=== PATIENT | female | born 1975 | race Caucasian/White ===

== ENCOUNTER 2017-05-01 10:52 | Emergency (ER) | payer OTHER ==
[2017-05-01 10:58] VITALS: BP 157/93; PULSE 92; TEMP 97.8; BMI 28.9
--- NOTE | 2017-05-01 11:11 | PDOC ---
History of Present Illness - General Chief Complaint: Chest Pain Stated Complaint: DIZZINESS, CHEST PAIN Time Seen by Provider: 05/01/17 11:09 History Source: Patient Exam Limitations: No Limitations - History of Present Illness Initial Comments: CHIEF COMPLAINT: 42 y/o afebrile female with PMH hypothyroidism c/o chest pain that started this morning on her way to work. HISTORY OF PRESENT ILLNESS: The patient states she was driving to work when she started feeling middle chest pain that she describes as a feeling that she needs to "belch". She did not have anything to eat yet today. She also admits to mild nausea. She denies f/c, PHILIP, neck pain, v/d, cough, hemoptysis, SOB, abd pain, calf pain, smoking history, recent travel. The patient had a hysterectomy. She had a right knee osteotomy on 02/19/17, is 50% weight bearing with the aide of 1 crutch and is currently doing physical therapy. PCP is Dr. Wooten. Vital signs on arrival are notable for pulse of 92. REVIEW OF SYSTEMS: GENERAL/CONSTITUTIONAL: No fever/chills. No weakness. No weight change. HEAD, EYES, EARS, NOSE AND THROAT: No change in vision. No ear pain or discharge. No sore throat. CARDIOVASCULAR: +anterior chest pain. No shortness of breath. RESPIRATORY: No cough, wheezing, or hemoptysis. GASTROINTESTINAL: +nausea. No abd pain, nausea, vomiting, diarrhea. GENITOURINARY: No dysuria, frequency, or change in urination. MUSCULOSKELETAL: No joint or muscle swelling or pain. No neck or back pain. SKIN: No rash or easy bruising. NEUROLOGIC: No headache, vertigo, loss of consciousness, or loss of sensation. PHYSICAL EXAM: GENERAL: The patient is awake, alert, and fully oriented, in no acute distress. She is very well appearing, ambulatory, in NAD or obvious discomfort. HEAD: Normal with no signs of trauma. ENT: Pupils equal, round and reactive to light, extraocular movements intact, sclera anicteric, conjunctiva clear. Neck supple. LUNGS: Clear to auscultation bilaterally. Normal excursion. No respiratory distress or use of accessory muscles. CV: RRR, S1/S2, no MRG. Cap refill < 2 sec. CHEST WALL: No reproducible chest wall TTP. ABDOMEN: Soft, non-distended, non-tender even to deep palpation, no hepatomegaly or splenomegaly, no masses. EXTREMITIES: Normal range of motion, no edema. NEUROLOGICAL: Normal speech, normal gait. CN II-XII grossly intact. PSYCH: Normal mood, normal affect. SKIN: Warm, dry, normal turgor, no rashes or lesions noted. Past History - Past Medical History Allergies/Adverse Reactions: Allergies Allergy/AdvReac Type Severity Reaction Status Date / Time carrot Allergy Verified 05/01/17 10:58 fruit Allergy Uncoded 05/01/17 10:58 Thyroid Disease: Yes - Surgical History Appendectomy: Yes - Psycho/Social/Smoking Cessation Hx Anxiety: No Suicidal Ideation: No Smoking History: Never smoked Have you smoked in the past 12 months: No Information on smoking cessation initiated: No Hx Alcohol Use: No Drug/Substance Use Hx: No Substance Use Type: None *Physical Exam - Vital Signs Last Vital Signs Temp Pulse Resp BP Pulse Ox 97.8 F 92 H 19 157/93 99 05/01/17 10:56 05/01/17 10:56 05/01/17 10:56 05/01/17 10:56 05/01/17 10:56 Heart Score/ECG Review - ECG Intrepretation Comment:: Twelve-lead EKG was performed and reviewed by Dr. Corey. There is normal sinus rhythm with a normal rate. The axis is normal. The intervals are normal. There are no ST or T wave abnormalities. No S1Q3T3. Impression: Normal twelve-lead EKG ED Treatment Course - Medications Given in the ED: ED Medications Discontinued Medications Generic Name Dose Route Start Last Admin Trade Name Giorgio PRN Reason Stop Dose Admin Ondansetron HCl 4 mg 05/01/17 11:27 05/01/17 13:10 Zofran Odt - SL 05/01/17 11:28 4 mg ONCE ONE Administration Ranitidine HCl 300 mg 05/01/17 11:27 05/01/17 13:10 Zantac - PO 05/01/17 11:28 300 mg ONCE ONE Administration Medical Decision Making - Medical Decision Making A/P: 42 y/o afebrile female with anterior chest pain today. Plan is as follows : 1. EKG 2. Labs 3. PO zantac 4. SL zofran EKG - normal The patient does not want to wait for lab work to be done. She has just had her medication and cannot tell me if she has any relief. She wants to sign out AMA and follow up with her PCP. I explained to her that an EKG is not all inclusive to determine no heart issues. I informed her that signing out AMA could result in worsening of conditions, permanent disability and even . The patient understands the risks and still wants to sign out AMA. The patient ambulates without difficulty out of the emergency department. She is alert and oriented and of sound decision making capacity. She leaves AGAINST MEDICAL ADVICE. AMA-AGAINST MEDICAL ADVICE The patient is a 42-year-old female who wants to leave the [facility] Emergency Department before assessment, diagnosis and treatment are completed. The patient has been counseled in regard to the benefits of remaining for treatment and the risks of leaving before medical evaluation and care are provided. These risks are many and include failure to diagnose the condition, failure to provide needed treatment, and a failure to obtain needed specialty care as required. The patient has been informed that failure to complete needed diagnosis and treatment may result in pain, worsening of any medical conditions, possible permanent disability, and . Despite receiving detailed information regarding the benefits of completing care as well as the risks of leaving, the patient has elected to leave. An AMA form was completed. The patient has been told that they are welcome to return to the emergency department at any time should their condition worsen or if they have change their mind. *DC/Admit/Observation/Transfer Diagnosis at time of Disposition: Chest pain Qualifiers: Chest pain type: unspecified Qualified Code(s): R07.9 - Chest pain, unspecified - Discharge Dispostion Disposition: AGAINST MEDICAL ADVICE Condition at time of disposition: Stable
[2017-05-01] MEDS ORDERED: RANITIDINE HCL 150 MG TABLET (FP) PO ONE (11:27)
[2017-05-01] MEDS ORDERED: ONDANSETRON *ODT* 4 MG TABLET SL ONE (11:27)
[2017-05-01] MEDS ORDERED: ONDANSETRON *ODT* 4 MG TABLET ONE (13:03)
[2017-05-01] MEDS ORDERED: RANITIDINE HCL 150 MG TABLET (FP) ONE (13:03)
--- NOTE | 2017-05-05 10:47 | EKG ---
Test Reason : Blood Pressure : / mmHG Vent. Rate : 086 BPM Atrial Rate : 086 BPM P-R Int : 136 ms QRS Dur : 094 ms QT Int : 370 ms P-R-T Axes : 070 011 044 degrees QTc Int : 442 ms NORMAL SINUS RHYTHM NORMAL ECG NO PREVIOUS ECGS AVAILABLE Confirmed by CHAVO BURNETT MD ([id number]) on 05/05/2017 10:47:34 AM Referred By: Confirmed By:CHAVO BURNETT MD
== END 2017-05-01 14:05 | disposition left against medical advice (07) ==
LOC: JER 10:52
DX: R07.89 Other chest pain (principal)
CPT/HCPCS: 93005; 93010; 99281-25